=== PATIENT | female | born 1945 | race Caucasian/White ===

== ENCOUNTER → 2018-06-03 | Outpatient (CLI) | payer MEDICARE, OTHER ==
[~2018-06-03] MED LIST: ADULT LOW DOSE81 MG PO; FISH OIL 1,0001 EAC5 PO; FLECAINIDE ACET50 M1 PO; LANOXIN 0.120.125 M1 PO; MEDROLDOSEPACK PO; MOBIC15 MG PO; NIACIN FLUSH F PO; NOHOMEMEDICATIONS; RED YEAST RICE600 MG PO; SIMVASTATIN40 MG PO; SOTALOL80 MG PO
--- NOTE | 2018-06-11 17:38 | PAINCON ---
[address] [address] PAIN MANAGEMENT CONSULTATION Name: FLORESNITZA Cass [id number] Admission: 06/03/18 Attend Phys: Robi Corado MD Discharge: Date of : 45 Report #: [id number] THIS REPORT FOR: //name// CC: Analy Corado DATE OF SERVICE: 06/03/2018 CHIEF COMPLAINT: Low back pain at the waist line. HISTORY OF PRESENT ILLNESS: The patient is a 72-year-old female who has been referred to the pain clinic for evaluation. She states that she has back pain involving the lower area. Notes that the pain can be problematic when she is getting in and out of the car. Notes that walking can exacerbate her pain and discomfort. States that walking in incline can exacerbate her pain. Feels that the use of an ice pack can be helpful at time. Describes it as periodic, shooting at its onset, cramping after standing and aching. Rates as 4/10 today. Oftentimes, it is a 5-6/10. Denies any trauma to her back. Denies any heavy lifting or other reasons for back pain. She notes that over the last 6 months, the pain has been most problematic. Her was being treated for prostate cancer. Therefore, her pain, took second to her husbands problems. Now the things have settled down with him. She is set forth to try and figure out what is the nidus for her pain. She has tried Naprosyn. Sometimes notes that if she walks and goes shopping could notes a worsening of her pain. She states that she does not lean over the cart because her is leaning over the cart. ALLERGIES: CARDIZEM AND SULFA. MEDICATIONS: Aspirin and simvastatin 40 mg in the evening. PAST MEDICAL HISTORY: Generally good health, has anemia and joint disease. History of atrial fibrillation, status post ablation. PAST SURGICAL HISTORY: Total left knee replacement in 05/2014. Cervical arthrodesis in 02/2016 and catheter ablation for atrial fibrillation in 06/2015. SOCIAL HISTORY: She has been retired since 2004. REVIEW OF SYSTEMS: Generally good health, wears glasses, palpitations, shortness of breath, joint stiffness, swelling, and back pain. LABORATORY DATA: MRI of the lumbar spine dated 05/17/2018: 1. MRI of the lumbar spine, L2-L3 diffuse disk bulge seen. No evidence of central canal stenosis or neural foraminal stenosis. L1-L2 disk bulge is seen. Focal hyperintensity is seen in the posterior [place] [address] PAIN MANAGEMENT CONSULTATION Name: NITZA FLORES Room: [facility]#: [id number] Admission: 06/03/18 Attend Phys: Robi Corado MD Discharge: Date of : 45 Report #: [id number] represents an annular tear. Thecal sac measures 11 x ____ mm AP diameter. Neural foramen are patent. L2-L3 minimal disk bulge is seen. No evidence of central canal or foraminal stenosis. 2. L3-L4 minimal disk bulge. No evidence of foramen stenosis. 3. L4-L5, there is a 2 mm anterolisthesis of L4. Facet hypertrophy is seen. There is diffuse bulging. The thecal sac measures 10 mm AP. No significant foraminal stenosis. 4. L5-S1 disk space narrowing seen. Focal intensity is seen in the posterior aspect of the disk. This represents an annular tear. Minimal diffuse disk bulge is seen. No evidence of central canal stenosis. No significant foraminal stenosis. Facet hypertrophy is seen. PAIN CLINIC ASSESSMENT: 1. History of osteoarthritis. The patient is not being treated for osteoarthritis or rheumatoid arthritis. 2. Height 5 feet 8 inches, weight 191 pounds, BMI is 29. 3. Vital signs: Blood pressure 146/72, heart rate 76, respiratory rate 16, room air saturation 97%, and temperature 98.3. 4. Pain intensity is 3-4/10. 5. Blood thinner. The patient is not on a blood thinning medication. 6. History of hypertension. The patient is not being treated for hypertension. 7. Opiate therapy greater than 6 weeks. The patient is not on an opioid therapy. 8. Risk assessment tool. 9. Functional assessment tool. 10. Recreational drug use. The patient denies use of recreational drugs. 11. Tobacco: The patient denies use of tobacco. 12. Alcohol: The patient denies frequent use of alcoholic beverages. PHYSICAL EXAMINATION: GENERAL: The patient is a well-developed, well-nourished white female. Appears her stated age. She is alert and oriented x 3. Affect is appropriate. Speech is fluent. HEENT: Normocephalic, atraumatic. Extraocular eye muscles intact. Mucous membranes are moist. NECK: Without JVD or adenopathy. LUNGS: Clear to auscultation. ABDOMEN: Nontender. MUSCULOSKELETAL: Without significant scoliosis, kyphosis, or lordosis. The patient is able to stand on her toes, rocks back and forth on her heels. Left and right lateral bending cause some increased low back discomfort. Left and right lateral rotation cause some low back discomfort. Anterior spring test is negative, posterior spring test is negative. Thomas sign is negative. IMPRESSION: 1. Chronic low back pain, which has increased over the last 6 [place] [address] PAIN MANAGEMENT CONSULTATION Name: NITZA FLORES Room: [facility]#: [id number] Admission: 06/03/18 Attend Phys: Robi Corado MD Discharge: Date of : 45 Report #: [id number] 2. Hypercholesterolemia. RECOMMENDATIONS: We discussed treatment options with the patient. Possibility of injections in the lumbar area given that she has a tear has been offered. At this juncture, we will try the most conservative approach. The patient will be given a Medrol Dosepak to take in the interim. She will also try Mobic nonsteroidal anti-inflammatory medication. Hopefully, she will find that this is helpful, if not, we will consider possibility of an injection in the future. We would like to thank you for letting us participate in her care. We hope she continues to improve. <ELECTRONICALLY SIGNED> By: Robi Corado MD 06/11/18 1738 [id number] [id number]. Jesse Corado MD /nt
== END ==
LOC: M.PC 05:02
DX: M54.5 Low back pain (principal); G89.29 Other chronic pain; E78.00 Pure hypercholesterolemia, unspecified

== ENCOUNTER → 2018-07-01 | Outpatient (CLI) | payer MEDICARE, OTHER ==
--- NOTE | 2018-07-19 10:00 | PAINCON ---
[address] [address] PAIN MANAGEMENT CONSULTATION Name: FLORESNITZA Cass Room: [facility] Kimberly#: [id number] Admission: 07/01/18 Attend Phys: Robi Corado MD Discharge: Date of : 45 Report #: [id number] THIS REPORT FOR: //name// CC: Analy Corado DATE OF SERVICE: 07/01/2018 FOLLOWUP COMPLAINT: The pain has improved. FOLLOWUP HISTORY: The patient is a 72-year-old female who has been seen in the pain clinic. She has been experiencing pain and discomfort, which were involved in the area of her low back. It was at the area of the oblique waistline. Notes that the pain was worse when she started. Standing in a location for a minutes can exacerbate pain and discomfort she was experiencing. She has some difficulty with getting in and out of a car. Notes that walking exacerbate her pain. She also notes that walking up an incline was problematic. She did have some shooting pain. This was particularly problematic after standing and described as aching. Rate her pain as a 4/10 on most days. She had not had any trauma to her back. She has not had surgery. Notes that her pain has increased over the last 6 months. Her is being treated for prostate cancer. She feels overall that the Medrol Dosepak in the Mobic have been quite helpful. She has had no complications. No GI complaints. Overall, she feels her pain today is 0/10. Notes that she does have some discomfort, but it is not as problematic. She is able to stand for a longer period of time. When the pain does occur, it is "milder." ALLERGIES: CARDIZEM AND SULFA. MEDICATIONS: Aspirin, simvastatin in the evening. PAST MEDICAL HISTORY: Atrial fibrillation . PAIN CLINIC ASSESSMENT/PQRS: 1. History of osteoarthritis. The patient has not been treated for osteoarthritis or rheumatoid arthritis. 2. Height 5 feet 8 inches, weight 193 pounds and BMI is 29.4. 3. Vital signs: Blood pressure 155/77, heart rate 70, respiratory rate 16, room air saturation 96% and temperature 98.3. 3. Pain intensity 0/10. 4. Blood thinner. The patient is not on a blood thinning medication. She has been treated in the past for atrial fibrillation. 5. Opioids greater than 1 week. The patient is not on opioid medication. 6. Risk assessment tool, low for use of opioid medication. 7. Functional assessment tool. 8. Recreational drug use. The patient [place] [address] PAIN MANAGEMENT CONSULTATION Name: NITZA FLORES Room: [facility]#: [id number] Admission: 07/01/18 Attend Phys: Robi Corado MD Discharge: Date of : 45 Report #: [id number] 9. Tobacco: The patient denies use of tobacco. 10. Alcohol: The patient drinks about 2 alcoholic beverages per week. PHYSICAL EXAMINATION: GENERAL: The patient is a well-developed, well-nourished white female. Appears her stated age. She is alert and oriented x 3. Affect is appropriate. Speech is fluent. HEENT: Normocephalic, atraumatic. Extraocular eye muscles intact. Mucous membranes are moist. The patient wears glasses. NECK: Without JVD or adenopathy. LUNGS: Clear to auscultation. ABDOMEN: Nontender. Bowel sounds present. MUSCULOSKELETAL: Without scoliosis, kyphosis or lordosis. The patient is able to stand, stand on her toes hips or heels. She can walk rock back and forth. Notes some pain in the lateral left and right side with bending. Has less discomfort today than at the last visit. Anterior spring test is negative. Thomas sign is negative. IMPRESSION: 1. Chronic low back pain, which increased over the last 6 months-improved after conservative treatment. 2. Hypercholesterolemia. 3. History of atrial fibrillation. RECOMMENDATIONS: We discussed treatment options with the patient. Risks and benefits of use of nonsteroidal anti-inflammatory medications were discussed. We will have the patient continue to try Mobic. She will take it as a p.r.n. basis. She states that she is going to become more active. Encouraged her to take this medication if she is going to be an active such as going to the gym or engaging in significant amount of physical activity. If she notes any problems with her GI tract with irritation she will stop taking the medication. She may call in the future should she find that the Mobic is helpful and runs out that we could call in another prescription of this medication. We would like to thank you for letting us participate in her care. We hope she continues to improve. <ELECTRONICALLY SIGNED> By: Robi Corado MD 07/19/18 1000 [id number] 0957N. Jesse Corado MD /nt
== END ==
LOC: M.PC 04:54
DX: M54.5 Low back pain (principal); E78.00 Pure hypercholesterolemia, unspecified; Z86.79 Personal history of other diseases of the circulatory system

== ENCOUNTER 2021-10-15 05:03 | Observation (INO) | payer MEDICARE, OTHER ==
[~2021-10-15] VITALS: Ht 170.2 cm; Wt 79.4 kg
[2021-10-15 05:09] VITALS: BP 137/56
[2021-10-15 07:09] LABS: ABSOLUTE BASOPHILS 0.1 thou/uL (0.0-0.2); ABSOLUTE EOSINOPHILS 0.1 thou/uL (0.0-0.7); ABSOLUTE LYMPHOCYTES 0.8 thou/uL (0.8-5.3); ABSOLUTE MONOCYTES 0.6 thou/uL (0.0-1.2); ABSOLUTE NEUTROPHILS 5.8 thou/uL (1.6-8.1); BASOPHILS 0.7 %; EOSINOPHILS 0.8 %; HEMATOCRIT 41.6 % (37.0-47.0); HEMOGLOBIN 13.5 gm/dL (12.0-15.0); LYMPHOCYTES 11.1 %; MCH 32.2 pg (26.0-34.0); MCHC 32.4 g/dL (28.0-37.0); MCV 99.2 fL (80.0-100.0); MONOCYTES 8.7 %; MPV 9.5 fl. (7.2-11.1); NUCLEATED RBCS 0 /100WBC; PLATELET COUNT* 248 thou/uL (150-400); POLYS 78.7 %; RDW-CV 13.6 % (10.5-14.5); WBC 7.3 thou/uL (4.0-11.0)
[2021-10-15 07:14] LABS: APTT 25.7 Seconds (25.0-31.3); PROTIME 10.7 Seconds (9.20-11.50)
[2021-10-15 07:18] LABS: CALCIUM 8.6 mg/dL (8.5-10.1); CREATININE 0.8 mg/dL (0.6-1.3); POTASSIUM 4.5 mmol/L (3.5-5.1)
[2021-10-15 07:22] LABS: URINE BILIRUBIN NEGATIVE (Negative); URINE BLOOD TRACE (Negative); URINE CLARITY CLEAR; URINE COLOR YELLOW; URINE GLUCOSE-RANDOM NEGATIVE (Negative); URINE KETONES 1+ (Negative); URINE LEUKOCYTES NEGATIVE (Negative); URINE NITRITE NEGATIVE (Negative); URINE PROTEIN NEGATIVE (Negative); URINE SPECIFIC GRAVITY 1.015 (1.005-1.030); URINE UROBILINOGEN 0.2 E.U./dl (0.2-1.0)
[2021-10-15 07:23] LABS: ALBUMIN 3.3 g/dL (3.4-5.0); TOTAL BILIRUBIN 0.7 mg/dL (<0.1-1.0); TOTAL PROTEIN 6.6 g/dL (6.4-8.2)
[2021-10-15 07:25] LABS: BACTERIA None Seen /HPF (None Seen); CASTS None Seen /LPF (None Seen); CRYSTALS None Seen /LPF (None Seen); SQUAMOUS 0-3 Few /LPF (0-3); URINE RBC 0-2 Rare /HPF (0-2)
[2021-10-15 08:07] LABS: URINE WBC 0-5 Rare /HPF (0-5)
--- NOTE | 2021-10-15 10:04 | EKG ---
[place] [address] ELECTROCARDIOGRAM REPORT Name: FLORES,NITZA Odell Room: [facility]#: [id number] Admission: 10/15/21 Attend Phys: Discharge: Date of : 45 Date of Service: 10/15/21 0515 Report #: [id number] THIS REPORT FOR: //name// [facility] ED Test Date: 2021-10-15 Test Time: 05:15:55 Pat Name: NITZA FLORES Department: Room: Gender: Grocery Supervisor: [facility] : 1945 Requested By: Ashlie Back Order Number: [id number] MD: Andrew James Measurements Intervals [place] Rate: 55 P: -21 MA: 153 QRS: 51 QRSD: 103 T: 28 QT: 433 QTc: 415 Interpretive Statements Sinus rhythm Borderline ST depression, diffuse leads Compared to ECG 06/10/2010 21:06:40 ST (T wave) deviation persists Atrial abnormality no longer present Electronically Signed On 10-15-2021 10:04:02 STEREOTYPER by Andrew James [email or web address] <ELECTRONICALLY SIGNED> By: Andrew James MD, FACC 10/15/21 1004 0515 0515 Andrew James MD, [facility] /EPI
--- NOTE | 2021-10-15 11:22 | EKG ---
[place] [address] ELECTROCARDIOGRAM REPORT Name: FLORESNITZA Odell Room: [facility]#: [id number] Admission: 10/15/21 Attend Phys: Discharge: Date of : 45 Date of Service: 10/15/21 1019 Report #: [id number] THIS REPORT FOR: //name// [facility] ED Test Date: 2021-10-15 Test Time: 10:19:09 Pat Name: NITZA FLORES Department: Room: Gender: F Tile Inspector: [facility] : 1945 Requested By: Paramjit Hutson Order Number: [id number] MD: Andrew James Measurements Intervals [place] Rate: 59 P: 20 RI: 138 QRS: 38 QRSD: 95 T: 37 QT: 435 QTc: 431 Interpretive Statements Sinus rhythm Minimal ST depression, anterolateral leads, consider ischemia Compared to ECG 10/15/2021 05:15:55 No significant changes Electronically Signed On 10-15-2021 11:21:49 NEURODIAGNOSTIC TECHNICIAN by Andrew James [email or web address] <ELECTRONICALLY SIGNED> By: Andrew James MD, [facility] 10/15/21 1121 1019 1019 Andrew James MD, [facility] /EPI
[2021-10-15 17:23] VITALS: BP 138/52
[2021-10-15 22:25] VITALS: BP 127/52
[2021-10-16] VITALS: BP 136/65
[2021-10-16 04:00] VITALS: BP 135/63
[2021-10-16 05:01] LABS: ABSOLUTE EOSINOPHILS 0.2 thou/uL (0.0-0.7); ABSOLUTE LYMPHOCYTES 1.3 thou/uL (0.8-5.3); ABSOLUTE MONOCYTES 0.7 thou/uL (0.0-1.2); ABSOLUTE NEUTROPHILS 3.4 thou/uL (1.6-8.1); BASOPHILS 0.7 %; EOSINOPHILS 2.9 %; HEMATOCRIT 37.7 % (37.0-47.0); HEMOGLOBIN 12.4 gm/dL (12.0-15.0); LYMPHOCYTES 22.9 %; MCH 32.4 pg (26.0-34.0); MCHC 32.9 g/dL (28.0-37.0); MCV 98.2 fL (80.0-100.0); MONOCYTES 12.7 %; NUCLEATED RBCS 0 /100WBC; PLATELET COUNT* 227 thou/uL (150-400); POLYS 60.8 %; RBC 3.83 mil/uL (4.20-5.00); RDW-CV 13.8 % (10.5-14.5); WBC 5.6 thou/uL (4.0-11.0)
[2021-10-16 05:20] LABS: CALCIUM 8.6 mg/dL (8.5-10.1); CREATININE 0.8 mg/dL (0.6-1.3); POTASSIUM 4.1 mmol/L (3.5-5.1)
[2021-10-16 08:00] VITALS: BP 153/55
[2021-10-16 12:34] VITALS: BP 153/55
--- NOTE | 2021-10-16 12:48 | 2DMMODE ---
[place] [address] 2 D/M-MODE ECHOCARDIOGRAM Name: NITZA FLORES Room: [address] Giovanni Harris#: [id number] Admission: 10/15/21 Attend Phys: Hermelindo Claros, Discharge: Date of : 45 Date of Service: 10/16/21 1248 Report #: [id number] THIS REPORT FOR: cc: Analy Lujan,Analy George,Andrew Hitchcock MD [facility] ~ APPROVED REPORT Study performed: 10/16/2021 11:44:42 EXAM: Comprehensive 2D, Doppler, and color-flow Echocardiogram Patient Location: In-Patient Room #: [facility] [place] [facility] [place] Status: routine BSA: 1.91 HR: 61 bpm BP: 135/63 mmHg Rhythm: NSR Other Information Study Quality: Good Indications Syncope 2D Dimensions IVSd: 8.81 (7-11mm) LVOT Diam: 21.08 (18-24mm) LVDd: 45.29 mm PWd: 8.53 (7-11mm) Ascending Ao: 31.78 (22-36mm) LVDs: 24.14 (25-40mm) Aortic Root: 29.09 mm Volumes Left Atrial Volume (Systole) LA ESV Index: 32.70 mL/m2 Aortic Valve AoV Peak Andrew.: 1.44 m/s AO Peak Gr.: 8.32 mmHg LVOT Max P.45 mmHg AO Mean Gr.: 4.60 mmHg LVOT Mean P.52 mmHg LVOT Max V: 0.93 m/s AO V2 VTI: 29.42 cm LVOT Mean V: 0.56 m/s TALI (VTI): 2.16 cm2 LVOT V1 VTI: 18.25 [place] [address] 2 D/M-MODE ECHOCARDIOGRAM Name: NITZA FLORES Room: [address]#: [id number] Admission: 10/15/21 Attend Phys: Hermelindo Claros, Discharge: Date of : 45 Date of Service: 10/16/21 1248 Report #: [id number] Mitral Valve E/A Ratio: 1.13 MV Decel. Time: 172.24 ms MV E Max Andrew.: 0.78 m/s MV PHT: 49.95 ms MVA (PHT): 4.40 cm2 TDI E/Lateral E': 5.57 E/Medial E': 7.80 Medial E' Andrew.: 0.10 m/s Lateral E' Andrew.: 0.14 m/s Pulmonary Valve PV Peak Andrew.: 0.90 m/s PV Peak Gr.: 3.27 mmHg Tricuspid Valve RAP Estimate: 5.00 mmHg TR Peak Gr.: 23.19 mmHg RVSP: 28.00 mmHg PA Pressure: 28.00 mmHg Left Ventricle The left ventricle is normal size. There is normal LV segmental wall motion. There is normal left ventricular wall thickness. Left ventricular systolic function is normal. The left ventricular ejection fraction is within the normal range. LVEF is 55-60%. The left ventricular diastolic function is normal. Right Ventricle The right ventricle is normal size. The right ventricular systolic function is normal. Atria The left atrium size is normal. The right atrium size is normal. Aortic Valve Mild aortic valve sclerosis. No aortic regurgitation is present. There is no aortic valvular stenosis. Mitral Valve There is mitral annular calcification. Mild mitral regurgitation. No evidence of mitral valve stenosis. Tricuspid Valve The tricuspid valve is normal in structure. Mild to moderate tricuspid regurgitation. [place] [address] 2 D/M-MODE ECHOCARDIOGRAM Name: NITZA FLORES Room: [address]#: [id number] Admission: 10/15/21 Attend Phys: Hermelindo Claros, Discharge: Date of : 45 Date of Service: 10/16/21 1248 Report #: [id number] Pulmonic Valve The pulmonary valve is normal in structure. Trace pulmonic regurgitation. Great Vessels The aortic root is normal in size. IVC is normal in size and collapses >50% with inspiration. Pericardium There is no pericardial effusion. <Conclusion> The left ventricle is normal size. There is normal left ventricular wall thickness. Left ventricular systolic function is normal. The left ventricular ejection fraction is within the normal range. LVEF is 55-60%. The left ventricular diastolic function is normal. The right ventricle is normal size. The left atrium size is normal. Mild aortic valve sclerosis. No aortic regurgitation is present. There is no aortic valvular stenosis. There is mitral annular calcification. Mild mitral regurgitation. The tricuspid valve is normal in structure. Mild to moderate tricuspid regurgitation. No pulmonary hypertension. IVC is normal in size and collapses >50% with inspiration. There is no pericardial effusion. There is normal LV segmental wall motion. <ELECTRONICALLY SIGNED> By: Andrew James MD, FACC 10/16/21 1248 1248 1248 Andrew James MD, FACC /INF
== END 2021-10-16 13:48 | disposition home or self-care (01) ==
LOC: M.ERS 05:03 → M.TBA-ER 14:39 → M.2W 20:32
PROVIDERS: Emergency Medicine; Personal Emergency Response Attendant; ADMIT Internal Medicine; ATTEND Internal Medicine
DX: R55 Syncope and collapse (principal); I48.91 Unspecified atrial fibrillation; R79.89 Other specified abnormal findings of blood chemistry; Z20.822 Contact with and (suspected) exposure to COVID-19; E78.00 Pure hypercholesterolemia, unspecified; Z88.8 Allergy status to other drugs, medicaments and biological substances; Z79.82 Long term (current) use of aspirin; Z79.899 Other long term (current) drug therapy; Z90.89 Acquired absence of other organs; Z88.2 Allergy status to sulfonamides; Z91.018 Allergy to other foods